=== PATIENT | female | born 1985 ===

== ENCOUNTER 2017-09-11 09:10 | Emergency (ER) | payer OTHER ==
[2017-09-11] MEDS ORDERED: Sodium Chloride 0.9% 1,000 ML ONE (09:50)
--- NOTE | 2017-09-11 09:51 | C.PDOC ---
History Of Present Illness 31-YEAR-OLD FEMALE, PRESENTS TO THE EMERGENCY DEPARTMENT WITH COMPLAINTS OF NV X 2 DAYS. LMP 2/5 G1. NO FEVER, DIARRHEA, UTI SX. GEN ABD CRAMPING, CHEST BURNING. PS NEW TO AREA, DOES NOT HAVE AN OBGYN EXAM MILD DIST NONTOXIC HEENT DRY MMM ANICTERIC ABD NEG REMAINDER NEG Time Seen by Provider: 09/11/17 09:32 Chief Complaint (Nursing): Abdominal Pain History Per: Patient History/Exam Limitations: no limitations Onset/Duration Of Symptoms: Days Past Medical History Reviewed: Historical Data, Nursing Documentation, Vital Signs Vital Signs: Last Vital Signs Temp 97.8 F 09/11/17 11:04 Pulse 83 09/11/17 11:04 Resp 20 09/11/17 11:04 BP 92/58 L 09/11/17 11:04 Pulse Ox 99 09/11/17 12:59 Family History: States: No Known Family Hx - Social History Hx Alcohol Use: No Hx Substance Use: No - Immunization History Hx Tetanus Toxoid Vaccination: No Hx Influenza Vaccination: No Hx Pneumococcal Vaccination: No Review Of Systems Cardiovascular: Negative for: Chest Pain Respiratory: Negative for: Cough, Shortness of Breath Gastrointestinal: Positive for: Nausea, Vomiting. Negative for: Diarrhea Genitourinary: Negative for: Dysuria, Hematuria, Vaginal Discharge, Vaginal Bleeding Musculoskeletal: Negative for: Back Pain Neurological: Negative for: Weakness, Headache, Dizziness Physical Exam - Physical Exam Appears: Non-toxic, No Acute Distress (MILD DIST) Skin: Normal Color, Warm, Dry, No Rash Head: Normacephalic Eye(s): bilateral: PERRL, Other (ANICTERIC) Nose: Normal Oral Mucosa: Dry Lips: Normal Appearing Neck: Normal ROM Chest: Symmetrical Cardiovascular: Rhythm Regular, No Murmur Respiratory: Normal Breath Sounds, No Accessory Muscle Use Gastrointestinal/Abdominal: Soft, No Tenderness Extremity: Normal ROM, No Deformity, No Swelling Neurological/Psych: Oriented x3 ED Course And Treatment - Laboratory Results Result Diagrams: 09/11/17 10:06 09/11/17 10:06 O2 Sat by Pulse Oximetry: 99 (RA) Pulse Ox Interpretation: Normal Progress - Re-Evaluation Re-evaluation Note: 09/11/17 13:41 TOLERATING PO WO DIFF. PS FEELS BETTER. ADVISED NEED FOR OBGYN FU - Data Reviewed Data Reviewed: Lab, Diagnostic imaging, Old records Disposition Counseled Patient/Family Regarding: Studies Performed, Diagnosis, Need For Followup, Rx Given - Disposition Referrals: [facility] [Outside] [facility] [Outside] Disposition: HOME/ ROUTINE Disposition Time: 13:41 Condition: IMPROVED Additional Instructions: TAKE MAALOX DIRECTED. AVOID SPICY, FRIED OR FATTY FOODS. FOLLOW UP OBGYN Prescriptions: Famotidine [Pepcid AC] 10 mg PO QN #30 tablet Ondansetron [Zofran Odt] 4 mg PO TID PRN #9 odt PRN Reason: Nausea/Vomiting Instructions: Nausea and Vomiting of Forms: [employer] Connect ([employer]) - Clinical Impression Clinical Impression: Nausea/vomiting in - Scribe Statement The provider has reviewed the documentation as recorded by the Scribe (Rodolfo Quick) All medical record entries made by the Scribe were at my direction and personally dictated by me. I have reviewed the chart and agree that the record accurately reflects my personal performance of the history, physical exam, medical decision making, and the department course for this patient. I have also personally directed, reviewed, and agree with the discharge instructions and disposition.
[2017-09-11] MEDS ORDERED: Sodium Chloride 0.9% 1,000 ML IV ONE ×2 (09:52→09:54)
[2017-09-11] MEDS ORDERED: Aluminum Hydroxide/Magnesium Hydroxide Susp (30 mL) PO STA (09:54)
[2017-09-11 10:11] LABS: BASO % 0.5 % (0.0-2.0); EOS # 0.5 K/uL (0.0-0.7); EOS % 8.5 % (0.0-4.0); HEMOGLOBIN 13.5 g/dL (11.0-16.0); LYMPH # 1.2 K/uL (1.0-4.3); LYMPH % 19.1 % (20.0-40.0); MEAN CELL VOLUME 87.5 fL (81.0-99.0); MEAN CORPUSCULAR HEMOGLOBIN 30.3 pg (27.0-31.0); MEAN CORPUSCULAR HGB CONC 34.6 g/dL (33.0-37.0); MEAN PLATELET VOLUME 7.9 fL (7.2-11.7); MONO # 0.3 K/uL (0.0-0.8); MONO % 5.3 % (0.0-10.0); NEUT % 66.6 % (50.0-75.0); RBC 4.47 Mil/uL (3.80-5.20); RED CELL DISTRIBUTION WIDTH 13.4 % (11.5-14.5); WHITE BLOOD COUNT 6.1 K/uL (4.8-10.8)
[2017-09-11] MEDS ORDERED: Aluminum Hydroxide/Magnesium Hydroxide Susp (30 mL) ONE (10:16)
[2017-09-11 10:20] LABS: SQUAMOUS EPITHIAL 14 /hpf (0-5); URINE BACTERIA RARE (<OCC); URINE BILIRUBIN NEGATIVE (NEGATIVE); URINE BLOOD NEGATIVE (NEGATIVE); URINE CLARITY Hazy (Clear); URINE COLOR Yellow (YELLOW); URINE GLUCOSE (UA) NORMAL (Normal); URINE LEUKOCYTE ESTERASE NEG Leu/uL (Negative); URINE PROTEIN NEGATIVE (NEGATIVE); URINE UROBILINOGEN NORMAL mg/dL (0.2-1.0)
[2017-09-11 10:24] LABS: ALB/GLOB RATIO 1.2 (1.0-2.1); ALBUMIN 4.7 g/dL (3.5-5.0); ALT/SGPT 34 U/L (9-52); AST/SGOT 31 U/L (14-36); BLOOD UREA NITROGEN 11 mg/dL (7-17); CALCIUM 9.1 mg/dl (8.6-10.4); GFR AFRICAN-AMERICAN > 60; GFR NON-AFRICAN AMERICAN > 60
--- NOTE | 2017-09-11 13:34 | US ---
Indication: Abdominal pain, rule out ectopic Comparison: None available Technique: Real-time transabdominal pelvic ultrasound was performed. In addition a transvaginal pelvic ultrasound was necessary to better depict pelvic anatomy. Findings: The uterus measures approximately 8.9 x 3.9 x 5.7 cm. Anteverted. Cervix length measures approximately 3.3 cm. There is a single intrauterine fetus present. 3 mm yolk sac. The gestational sac measures 1.2 cm and is compatible with a gestational age of 5 weeks 2 days. The crown-rump length measures 0.2 cm and is compatible with a gestational age of 5 weeks 5 days. heart motion was technically difficult to document, flicker was noted with 115 bpm recorded however recommend short term follow-up for confirmation. The right ovary measures 3.2 x 2.0 x 3.4 cm. 2.4 cm right ovarian cyst. 2.7 cm probable right corpus luteal cyst. The left ovary measures 2.9 x 1.6 x 2.2 cm. Blood flow was demonstrated to both ovaries. Cervix length measures approximately 3.3 cm. Small pelvic free fluid. Impression: Single intrauterine with estimated gestational age 5 weeks 2 days by gestational sac calculation and 5 weeks 5 days by crown-rump length calculation. heart motion was technically difficult to document, flicker was noted with 115 bpm recorded however recommend short term follow-up for confirmation. 2.7 cm probable right corpus luteal cyst. Small pelvic free fluid. Advise an anomaly screen at 16-18 weeks gestational age.
[2017-09-11 14:05] VITALS: BP 97/58; PULSE 84; RESP 18; TEMP 98.7; O2SAT 98
== END 2017-09-11 14:05 | disposition home or self-care (01) ==
LOC: C.ER 09:10
DX: O21.9 Vomiting of pregnancy, unspecified (principal); Z3A.01 Less than 8 weeks gestation of pregnancy
CPT/HCPCS: 76805; 76817; 80053; 81001; 84702; 84703; 85025; 96361; 96374; 96375; 99285; J2405; J7040

== ENCOUNTER 2017-10-04 06:38 | Day surgery (SDC) | payer OTHER ==
[2017-10-04] MEDS ORDERED: Propofol 10 mg/ml Inj (20 ML) ONE ×2 (08:06→08:27)
[2017-10-04] MEDS ORDERED: Midazolam 2 MG/2 ML VIAL ONE (08:27)
[2017-10-04] MEDS ORDERED: cefOXitin IV 1 gm in Dextrose 1 GM/50 ML BAG IVPB ONE (08:30)
[2017-10-04 10:46] VITALS: O2SAT 100
[2017-10-04] MEDS ORDERED: Lactated Ringer's 500 ML IV ONE (13:20)
[2017-10-04 14:55] VITALS: BP 95/56; PULSE 81; RESP 15; TEMP 98.1
--- NOTE | 2017-10-04 18:26 | PCM.SURG1 ---
Surgeon's Initial Post Op Note - Surgeon's Notes Surgeon: dr cortés Pipe Washer: none Type of Anesthesia: General Mask Anesthesia Administered By: dr saab Pre-Operative Diagnosis: 31yr at 8weeks missed Operative Findings: see the op reort Post-Operative Diagnosis: sme Operation Performed: suction d&c Specimen/Specimens Removed: poc. chromosomes Estimated Blood Loss: EBL {In ML}: 20 Blood Products Given: N/A Drains Used: No Drains Post-Op Condition: Good Date of Surgery/Procedure: 10/04/17 Time of Surgery/Procedure: 09:00
--- NOTE | 2017-10-05 05:03 | OP ---
PROCEDURE DATE: PREOPERATIVE DIAGNOSIS: A 31-year-old 1, para 0 at 8 weeks missed . POSTOPERATIVE DIAGNOSIS: A 31-year-old 1, para 0 at 8 weeks missed . SURGEON: Sergey Moon MD DIVERSIONAL THERAPIST SURGEON: None. TYPE OF ANESTHESIA: General. ANESTHESIOLOGIST: Dr. Hodges. COMPLICATIONS: None. PROCEDURE PERFORMED: Suction dilatation and curettage. ESTIMATED BLOOD LOSS: 20 mL. DESCRIPTION OF PROCEDURE: After informed consent obtained, the patient was brought to the operating room, placed on the table where general anesthesia was given. When the anesthesia was found to be sufficient, the patient was prepped and draped in the usual sterile fashion. Examination of the uterus revealed it to be 8 week size. Anterior lip of the cervix was grasped with a tenaculum. Gentle dilatation of the cervix was done. Suction 6-Thai flexible and then a 7-Thai catheter were used for suction of the products. Sharp curettage of was done and it was sent to the pathology. Product of tissue was sent for the chromosome. After that sharp curettage was done. Suction was done again. Then, the tenaculum was taken out of the anterior lip of the cervix. The patient tolerated the procedure well. Lap, sponge, and instrument counts were correct x2. Sergey Moon MD
== END 2017-10-04 14:34 | disposition home or self-care (01) ==
LOC: C.SDS 06:38
PROVIDERS: ATTEND Obstetrics & Gynecology
DX: O02.1 Missed abortion (principal)
CPT/HCPCS: 36415; 59820; 86850; 86900; 88233; 88262; 88305; J0694; J1885; J2250; J2405; J2704; J3010; J7120